=== PATIENT | female | born 1950 | race Asian ===

== ENCOUNTER 2018-02-18 09:23 | Day surgery (SDC) | payer MEDICARE, OTHER ==
[~2018-02-18] VITALS: Ht 157.5 cm; Wt 73.7 kg
[~2018-02-18 09:23] MED LIST: CYCL10TA7 PO; HYDR-3498 PO; IBUP-1542 PO; LOSA25TA6 PO
[2018-02-18 10:16] VITALS: Ht 157.5 cm; Wt 73.7 kg
[2018-02-18] MEDS ORDERED: LOSA50TA7 PO (10:23)
[2018-02-18] MEDS ORDERED: ATEN-51 PO (10:23)
[2018-02-18] MEDS ORDERED: LEVO75TA5 PO (10:23)
[2018-02-18] MEDS ORDERED: PRAV20TA2 PO (10:23)
[2018-02-18 10:31] VITALS: BP 143/73; PULSE 68; RESP 20
[2018-02-18] MEDS ORDERED: PROPOFOL 20 ML ONE ×2 (10:33→11:01)
--- NOTE | 2018-02-18 18:38 | CONS ---
DATE OF ADMISSION: 02/18/2018 DATE OF CONSULTATION: [place] NAME: ETHAN DENT TYPE OF CONSULTATION: Preoperative gastroenterology Dear Dr. Tran: I thank you very much for this kind referral. HISTORY OF PRESENT ILLNESS: Ms. Ethan Dent is a 67-year-old female patient who has been referred to me for further evaluation of positive occult blood in stool. No past history of colon neoplasm. The patient never had screening colonoscopy. Appetite is good and no weight loss. No upper abdominal p ain, nausea or vomiting. Not on nonsteroidal anti-inflammatory agents. No history of gallstones or liver disease. She has hypertension. No diabetes. No heart disease, lung problem or kidney disease . She has hyperlipidemia and hypothyroidism. SOCIAL HISTORY: Nonsmoker. No alcohol abuse. FAMILY HISTORY: No family history of gastrointestinal tract neoplasm. ALLERGIES: NO DRUG ALLERGIES. MEDICATIONS: 1. Atenolol 25 mg p.o. daily. 2. Losartan 50 mg p.o. daily. 3. Levothyroxine 75 mcg p.o. daily. 4. Pravastatin 20 mg p.o. daily. PHYSICAL EXAMINATION: VITAL SIGNS: She is 5 feet 1 inch tall and weighs 160 pounds, BMI 29. Blood pressure 140/70. HEART: Normal heart sounds. LUNGS: Clear. ABDOMEN: Soft, no masses. Normal bowel sounds. NEUROLOGIC: Normal neurological exam. IMPRESSION: 1. Positive occult blood in stool. 2. The patient never had screening colonoscopy. 3. Hypertension. 4. Hypothyroidism. 5. Hyperlipidemia. 6. Elevated body mass index. PLAN: 1. The patient was advised to lose weight. 2. Dietary consultation was recommended. 3. Follow up with the primary MD for the management of elevated BMI and hypertension. 4. Colonoscopy for further evaluation. The procedure and possible complications are well explained to the patient. She understands and cons ents to the procedure. I thank you once again. With warmest personal regards, Dictated By: LE SILVERMAN/EMMANUEL Conf#: [id number] DID#: [id number]
== END 2018-02-18 15:09 | disposition home or self-care (01) ==
LOC: GIL 09:23
PROVIDERS: ATTEND Internal Medicine Gastroenterology
DX: K92.1 Melena (principal); D12.5 Benign neoplasm of sigmoid colon; K64.8 Other hemorrhoids; K57.30 Diverticulosis of large intestine without perforation or abscess without bleeding; I10 Essential (primary) hypertension; E78.5 Hyperlipidemia, unspecified; E03.9 Hypothyroidism, unspecified
CPT/HCPCS: 88305